=== PATIENT | male | born 1985 | race Caucasian/White ===

== ENCOUNTER 2018-08-01 20:31 | Emergency (ER) | payer OTHER ==
[~2018-08-01] VITALS: Ht 190.5 cm; Wt 93.0 kg
[2018-08-01] MEDS ORDERED: ZPAK PO (20:43)
[2018-08-01 21:54] LABS: HEMATOCRIT 42.3 % (39.0-50.0); HEMOGLOBIN 14.6 g/dl (14.0-18.0); IMMATURE GRANULOCYTES 0.3 % (0.0-5.0); MEAN CELL VOLUME 87.4 fL CALC (80.0-100.0); MEAN CORPUSCULAR HGB 30.2 pG CALC (26.0-32.0); MEAN CORPUSCULAR HGB CONC 34.5 g/L CALC (32.0-36.0); NEUT# 4.77 thou/uL (1.82-7.42); RED BLOOD COUNT 4.84 mill/uL (4.70-6.10); RED CELL DISTRI WIDTH 12.2 % (11.5-15.5)
[2018-08-01 22:08] LABS: INFLUENZA B NONE DETECTED (NONE DETECT)
[2018-08-01 22:10] LABS: ALBUMIN 4.4 g/dL (3.2-5.0); ALKALINE PHOSPHATASE 58 u/l (38-126); ANION GAP 15 (6-22 (CALC)); BILIRUBIN, TOTAL 0.8 mg/dL (0.0-1.4); BUN 18 mg/dL (9-20); BUN/CREATININE RATIO 15 (12-20 (CALC)); CARBON DIOXIDE 26 mmol/l (22-30); CHLORIDE 102 mmol/l (95-108); CREATININE 1.1 mg/dL (0.7-1.3); GFR > 60 ML/MIN (>=60 (CALC)); GFR FOR AFR.AMER. > 60 ML/MIN (>=60 (CALC)); POTASSIUM 3.5 mmol/l (3.5-5.1); SGOT/AST 36 u/l (17-59); SODIUM 139 mmol/l (137-146); TOTAL PROTEIN 7.6 g/dL (6.3-8.2)
[2018-08-01] MEDS ORDERED: ZOFRAN ODT4 MG PO (22:19)
[2018-08-01] MEDS ORDERED: AMBIEN5 MG PO (22:19)
[2018-08-01] MEDS ORDERED: TAM75CAP PO (22:19)
[2018-08-01 22:30] VITALS: BP 108/70
== END 2018-08-01 22:34 | disposition home or self-care (01) | DRG 153 ==
LOC: ED 20:31
PROVIDERS: Emergency Medicine
DX: J11.1 Influenza due to unidentified influenza virus with other respiratory manifestations (principal)